=== PATIENT | male | born 1940 | race Caucasian/White ===

== ENCOUNTER 2017-12-25 12:10 | Day surgery (SDC) | payer OTHER ==
[~2017-12-25 12:10] MED LIST: DOXY100 PO; EYE GTTS
== END 2017-12-25 22:51 | disposition home or self-care (01) ==
LOC: WOUND 12:10
DX: Z48.00 Encounter for change or removal of nonsurgical wound dressing (principal); I89.0 Lymphedema, not elsewhere classified; S81.801A Unspecified open wound, right lower leg, initial encounter; N28.9 Disorder of kidney and ureter, unspecified; I87.2 Venous insufficiency (chronic) (peripheral); R60.0 Localized edema; I10 Essential (primary) hypertension; Z87.891 Personal history of nicotine dependence
CPT/HCPCS: G0463

== ENCOUNTER 2017-12-27 09:18 | Day surgery (SDC) | payer OTHER | END 2017-12-27 22:42 | disposition home or self-care (01) | LOC: WOUND 09:18 | PROC: 2W1QX6Z Compression of Right Lower Leg using Pressure Dressing (ICD-10-PCS; principal; 2017-12-27) | DX: I89.0 Lymphedema, not elsewhere classified (principal); S81.801A Unspecified open wound, right lower leg, initial encounter; N28.9 Disorder of kidney and ureter, unspecified; I87.2 Venous insufficiency (chronic) (peripheral); R60.0 Localized edema; I10 Essential (primary) hypertension ==

== ENCOUNTER 2018-01-01 09:57 | Day surgery (SDC) | payer OTHER | END 2018-01-01 22:53 | disposition home or self-care (01) | LOC: WOUND 09:57 | DX: Z48.00 Encounter for change or removal of nonsurgical wound dressing (principal); S81.801A Unspecified open wound, right lower leg, initial encounter; I89.0 Lymphedema, not elsewhere classified; N28.9 Disorder of kidney and ureter, unspecified; I87.2 Venous insufficiency (chronic) (peripheral); R60.9 Edema, unspecified; I10 Essential (primary) hypertension | CPT/HCPCS: G0463 ==

== ENCOUNTER → 2021-01-24 | Outpatient (CLI) | payer OTHER ==
[~2021-01-24] MED LIST changes: +ASPI325 PO; +ATEN50 PO; +BUME2 PO; +POTA10T PO; +PRAV20 PO; +VITAMIN D325 MC3 PO
[2021-01-24 19:51] LABS: Albumin, Blood 3.2 g/dL (3.4-5.0); Anion Gap 7 mmol/L (6-16); Blood Urea Nitrogen 21 mg/dL (8-24); Bun/Creatinine Ratio 14.8 (12.0-20.0); CO2, Blood 24 mmol/L (21-32); Calcium, Blood 9.1 mg/dL (8.5-10.1); Chloride, Blood 105 mmol/L (98-108); Creatinine, Blood 1.42 mg/dL (0.60-1.20); Glomerular Filtration Rate 51 (60-); Glucose, Blood 92 mg/dL (70-99); Phosphorus, Blood 2.8 mg/dL (2.5-4.9); Potassium, Blood 4.7 mmol/L (3.5-5.5); Sodium, Blood 136 mmol/L (136-145)
== END | disposition home or self-care (01) ==
LOC: LAB SHORT 11:40 → PLD 11:40
PROVIDERS: Internal Medicine Nephrology
DX: N18.30 Chronic kidney disease, stage 3 unspecified (principal); D63.1 Anemia in chronic kidney disease
CPT/HCPCS: 80069; 85018

== ENCOUNTER 2022-05-01 22:25 | Inpatient (IN) | payer OTHER ==
[~2022-05-01] VITALS: Ht 188 cm; Wt 110.2 kg
[2022-05-01 23:13] LABS: BASOPHILS ABSOLUTE AUTO 0.07 K/mm3 (0.00-0.23); BASOPHILS PERCENT AUTO 0 % (0-2); EOSINOPHILS ABSOLUTE AUTO 0.04 K/mm3 (0.00-0.68); EOSINOPHILS PERCENT AUTO 0 % (0-6); Hematocrit 43.4 % (37.0-53.0); Hemoglobin 12.6 g/dL (13.5-17.5); IMMATURE GRAN ABSOLUTE AUTO 0.27 K/mm3 (0.00-0.10); IMMATURE GRAN PERCENT AUTO 1 % (0-1); LYMPHOCYTES ABSOLUTE AUTO 0.89 K/mm3 (0.84-5.20); LYMPHOCYTES PERCENT AUTO 3 % (21-46); MONOCYTES ABSOLUTE AUTO 0.66 K/mm3 (0.16-1.47); MONOCYTES PERCENT AUTO 2 % (4-13); Mean Corpuscular HGB 22.4 pg (26.0-34.0); Mean Corpuscular Volume 77 fL (80-100); Mean Platelet Volume 9.8 fL (9.1-12.4); NEUTROPHILS ABSOLUTE AUTO 27.01 K/mm3 (1.96-9.15); NEUTROPHILS PERCENT AUTO 93 % (41-73); Platelet Count 821 K/mm3 (150-400); RDW Coefficient Variation 19.3 % (11.7-14.2); RDW Standard Deviation 51.5 fL (35.1-46.3); Red Blood Cell Count 5.62 M/mm3 (4.30-5.90); White Blood Cell Count 28.94 K/mm3 (4.00-11.30)
[2022-05-01 23:34] LABS: Influenza A, PCR NEGATIVE (NEGATIVE); Influenza B, PCR NEGATIVE (NEGATIVE); Resp Syncytial Virus, PCR NEGATIVE (NEGATIVE); SARS-Cov-2 (COVID-19) PCR, MMC NEGATIVE (NEGATIVE)
[2022-05-01 23:35] LABS: Albumin, Blood 2.2 g/dL (3.4-5.0); Albumin/Globulin Ratio 0.3 (0.8-1.8); Bilirubin, Total 0.6 mg/dL (0.1-1.0); Bun/Creatinine Ratio 55.5 (12.0-20.0); Calcium, Blood 11.5 mg/dL (8.5-10.1); Creatinine, Blood 1.64 mg/dL (0.60-1.20); Globulin, Blood 7.2 g/dL (2.2-4.0); Potassium, Blood 5.2 mmol/L (3.5-5.5); Total Protein, Blood 9.4 g/dL (6.4-8.2)
[2022-05-02 03:36] LABS: Source, Urine Foley catheter
[2022-05-02 03:44] LABS: Bilirubin, Urine Neg (Neg); Blood, Urine Neg (Neg); Glucose Qualitative, Urine Neg (Neg); Ketones, Urine Neg (Neg); Leukocyte Esterase, Urine Neg (Neg); Nitrite, Urine Neg (Neg); Protein, Urine Neg (Neg); Urobilinogen, Urine NORM (Normal)
[2022-05-02 03:46] LABS: Appearance, Urine Clear (Clear); Color, Urine Yellow (P-Yellow)
[2022-05-02 03:58] LABS: U Amphetamine Screen Not Detected; U Barbituate Screen Not Detected; U Benzodiazapine Screen Not Detected; U Buprenorphine Screen Not Detected; U Cannabinoids Screen Not Detected; U Cocaine Screen Not Detected; U Methadone Screen Not Detected; U Methamphetamine Screen Not Detected; U Opiates Screen Not Detected; U Oxycodone Screen Not Detected; U Phencyclidine Screen Not Detected; U Propoxyphene Screen Not Detected
[2022-05-02 06:18] LABS: Albumin, Blood 1.6 g/dL (3.4-5.0); Anion Gap 10 mmol/L (6-16); Blood Urea Nitrogen 89 mg/dL (8-24); Bun/Creatinine Ratio 50.3 (12.0-20.0); CO2, Blood 17 mmol/L (21-32); Chloride, Blood 106 mmol/L (98-108); Creatinine, Blood 1.77 mg/dL (0.60-1.20); Glomerular Filtration Rate 37 (60-); Glucose, Blood 106 mg/dL (70-99); Potassium, Blood 4.9 mmol/L (3.5-5.5); Sodium, Blood 133 mmol/L (136-145)
--- NOTE | 2022-05-02 08:00 | NUR ---
ASSUMING CARE: PT RAMESH @ PAIN, NO VERBAL RESPONSE, NO EYE OPENING. NO CORNEAL REFLEX. NO PUPILARY REFLEX. PUPILS 3mm, FIXED. WEAK GAG. BP SOFT, MAPs 50-65. LEVO gtt READY @ BEDSIDE. CORE TEMP 95.9. + BEAR HUGGER. <100ml CLOUDY UOP IN URIMETER. SIGNIFICANT PRESSURE WOUNDS TO MIRI HEELS; L HEEL W/ ESCAR & MAGGOTS. LARGE AMT OF PURULENT/NOVOA/RED EXUDATE FROM R HIP WOUND. DISCUSSED PT W/ CALL CENTER ASSOCIATE, WOUND CONSULT, & PALLIATIVE CARE ORDER PLACED.
--- NOTE | 2022-05-02 10:30 | NUR ---
UPDATE: WOUND CARE SENIOR SUPPLY CHAIN ANALYST, BOBBI, @ BEDSIDE FOR EVAL. INSTRUCTED TO PAINT MIRI HEELS W/ BETADINE & PAD R HIP WOUND W/ ABD PAD TO ABSORB EXUDATE. PER WOUND RN, WOUND NEEDS SURGICAL DEBRIDEMENT. THE PT DOES NOT APPEAR TO BE A GOOD CANDITATE. WILL DISCUSS W/ HOSPITALIST ONCE AVAILABLE.
--- NOTE | 2022-05-02 10:59 | NUR ---
Spoke with Primary RN Paty and discussed case. Pt was minimally responsive and was refusing care. Currently non responsive. Pt resting in bed with his eyes closed. Pt has significant BLLE edema with maggots coming out of the wound. Pt's son Jonathon at bedside. Son reports Pt has been refusing help for quite some time and has refused to see his doctor. Son reports Pt only wants to sit in his chair and wants to be left alone. Pt has not left his chair in 3 weeks. Discussed options for care including current plan of care and considering comfort care. Educated on comfort care philosophy with V/U made by chichi Holt. Jonathon reports Pt's wishes at this point in his life would to be to focus on comfort. Jonathon elects comfort care for Pt. Jonathon reports Pt has a daughter but lives in [place] and Jonathon reports he is Pt's decision maker. Spoke with Dr Enriquez and discussed case. Placed comfort care order, comfort care order set, D/C maintenance medications per V/O from Dr Enriquez. Spoke with RN Kay Galeano and discussed case. Palliative Care will remain available.
--- NOTE | 2022-05-02 11:16 | NUR ---
WOUND CARE- PT IS TRANSITIONING TO CC. PAINT BL HEELS WITH BETADINE DAILY D/T MAGGOTS. KEEP ALL OTHER WOUND CLEAND AND DRY.
--- NOTE | 2022-05-02 11:32 | NUR ---
WOUND CARE. PT IS CC. PAINT BL HEELS DAILY D/T MAGGOTS. ALL OTHER WOUNDS KEEP CLEAN AND DRY
--- NOTE | 2022-05-02 17:36 | NUR ---
SHIFT SUMMARY: PTTRANSFERRED ON GURNEY, FAMILY PRESENT DURING TRANSFER. PT SHOWED SIGNS OF FACIAL GRIMACING AND MOANING DURING TRANSFER, PT HAS EXCESS SECRETIONS. PT MEDICATED PER EMAR PROTOCOL. SUCTION EQUIPMENT SETUP AT BEDSIDE. PT HAS OPEN WOUNDS ON BLE HEELS, LEGS, AND BACK. PT HAS MOMENTS OF APNEA WITH DECREASED RESPIRATIONS.
--- NOTE | 2022-05-02 17:47 | NUR ---
PT RN AND CHARGE NURSE CONFIRMED TIME OF AT 1745. NO APICAL PULSE NOTED AND NO BREATHING NOTED FOR 1MIN. DOCTOR INFORMED.
== END 2022-05-02 17:45 | DRG 871 ==
LOC: ER 22:25 → ICUW 05-02 01:57 → MEDS 05-02 16:38
PROVIDERS: Emergency Medicine; Family Medicine; ADMIT Internal Medicine
PROC: 3E03329 Introduction of Other Anti-infective into Peripheral Vein, Percutaneous Approach (ICD-10-PCS; principal; 2022-05-02)
PROC: 3E033XZ Introduction of Vasopressor into Peripheral Vein, Percutaneous Approach (ICD-10-PCS; 2022-05-02)
DX: A41.9 Sepsis, unspecified organism (principal); G93.41 Metabolic encephalopathy; R65.21 Severe sepsis with septic shock; E87.1 Hypo-osmolality and hyponatremia; L03.116 Cellulitis of left lower limb; L03.115 Cellulitis of right lower limb; Z66 Do not resuscitate; Z51.5 Encounter for palliative care; I89.0 Lymphedema, not elsewhere classified; Z20.822 Contact with and (suspected) exposure to COVID-19; L89.629 Pressure ulcer of left heel, unspecified stage; L53.8 Other specified erythematous conditions; F03.90 Unspecified dementia, unspecified severity, without behavioral disturbance, psychotic disturbance, mood disturbance, and anxiety; E78.00 Pure hypercholesterolemia, unspecified; I10 Essential (primary) hypertension; E66.01 Morbid (severe) obesity due to excess calories; Z79.82 Long term (current) use of aspirin; Z79.899 Other long term (current) drug therapy; Z87.891 Personal history of nicotine dependence; Z68.30 Body mass index [BMI] 30.0-30.9, adult
CPT/HCPCS: 0241U; 36415; 51702; 70450; 71045; 73701; 80053; 80069; 81003; 83605; 83880; 84484; 85025; 87040; 93005; 93010; 96361; 96365; 96366; 96375; 99285-25; A9270; J0696; J1170; J2060; J2270; J3010; J3370; J7030; J7060; J7120; Q9967